=== PATIENT | female | born 1975 | race Caucasian/White ===

== ENCOUNTER 2016-08-30 09:19 | Emergency (ER) | payer OTHER ==
[~2016-08-30] VITALS: Ht 182.9 cm; Wt 113.4 kg
[2016-08-30 10:03] LABS: BILIRUBIN,URINE NEGATIVE (NEG); GLUCOSE,URINE NEGATIVE (NEG); NITRITE,URINE NEGATIVE (NEG); PROTEIN,URINE NEGATIVE (NEG-TRACE); UROBILINOGEN,URINE 0.2 mg/dL (0.2 mg/dL)
[2016-08-30] MEDS ORDERED: fentaNYL PF VIAL 100 MCG/2 ML VIAL IV ONE (10:15)
[2016-08-30] MEDS ORDERED: IV NORMAL SALINE 1000ML BAG 1,000 ML IV ONE (10:15)
[2016-08-30] MEDS ORDERED: IOHEXOL 240 MG/ML 50ML VIAL. PO ONE (10:15)
[2016-08-30] MEDS ORDERED: IOHEXOL 300 MG/ML 75 ML VIAL IV ONE (10:15)
[2016-08-30] MEDS ORDERED: ONDANSETRON PF 4 MG/2 ML VIAL. IV ONE ×2 (10:15→11:30)
[2016-08-30] MEDS ORDERED: CONTRAST GIVEN MC PRN (10:15)
[2016-08-30 10:31] LABS: BACTERIA,URINE MODERATE /HPF (0-FEW); RBC,URINE TNTC /HPF (0-2); SQUAMOUS EPITHELIAL CELL,UR MOD /LPF; WBC,URINE 0 /HPF (0-4)
[2016-08-30 10:49] LABS: CALCIUM 9.1 mg/dL (8.5-10.1); CREATININE 0.8 mg/dL (0.6-1.0); GFR 79.4; POTASSIUM 3.4 mmol/L (3.5-5.1)
[2016-08-30 10:50] LABS: BASO % 1 % (0-3); EOS % 3 % (0-3); HEMATOCRIT 41.4 % (36.0-47.0); HEMOGLOBIN 14.5 g/dL (12.0-15.5); LYMPH # 1.2 x10^3/uL (1.0-4.8); LYMPH % 21 % (24-48); MEAN CORPUSCULAR HEMOGLOBIN 30 pg (25-35); MEAN CORPUSCULAR HGB CONC 35 g/dL (31-37); MEAN CORPUSCULAR VOLUME 86 fL (79-100); MONO % 7 % (0-9); NEUT % 68 % (31-73); PLATELET COUNT 306 x10^3/uL (140-400); WHITE BLOOD COUNT 5.8 x10^3/uL (4.0-11.0)
[2016-08-30 10:59] LABS: ALBUMIN 4.1 g/dL (3.4-5.0); ALBUMIN/GLOBULIN RATIO 1.1 (1.0-1.7); TOTAL BILIRUBIN 0.3 mg/dL (0.2-1.0); TOTAL PROTEIN 7.7 g/dL (6.4-8.2)
--- NOTE | 2016-08-30 11:37 | RAD ---
CT scan of the abdomen and pelvis without contrast 08/30/2016 Clinical history: Right flank pain. Painful urination. Technique: After the oral administration of contrast, contiguous, 2 mm axial sections were obtained through the abdomen and pelvis. One or more of the following individualized dose reduction techniques were utilized for this study: 1. Automated exposure control. 2. Adjustment of the mA and/or kV according to patient size. 3. Use of iterative reconstruction technique. Findings: No previous imaging studies are available for comparison. Images through the lung bases demonstrate minimal dependent subsegmental atelectasis bilaterally. A 4 mm calcified granuloma is seen involving the right middle lobe. A calcified right hilar lymph node is seen. The liver is mildly enlarged measuring 26 cm in length. The liver parenchyma has a decreased attenuation consistent with mild fatty infiltration. The spleen, pancreas, and adrenal glands are within normal limits. No renal or ureteral calculus is seen. There is no evidence of obstruction of either collecting system. Mild atherosclerotic calcification of the abdominal aorta is seen. The abdominal aorta tapers normally. Surgical clips are within the gallbladder fossa consistent with a cholecystectomy. Surgical clips are seen medial to the cecum consistent with an appendectomy. There is no evidence of bowel obstruction. No free fluid or free air is seen within the abdomen. Images through the pelvis demonstrate a urinary bladder distended with urine. The uterus is not visualized consistent with a hysterectomy. No adnexal mass is seen. No distal ureteral calculus is noted. No free fluid is seen. Minimal S shaped curvature of the thoracolumbar spine is noted. Degenerative changes are seen involving the lower thoracic and throughout the lumbar spine and both hips. Impression: No acute abnormality is seen.
[2016-08-30] MEDS ORDERED: TAMS0.4C97 PO (12:13)
[2016-08-30] MEDS ORDERED: HYDR-971 PO (12:13)
[2016-08-30] MEDS ORDERED: ONDA4TAB10 SL (12:13)
--- NOTE | 2016-08-30 12:13 | PHYS DOC ---
Past Medical History Past Medical History: Diabetes-Type II, Migraines Past Surgical History: Appendectomy, Cholecystectomy, Hysterectomy Alcohol Use: None Drug Use: None Adult General Chief Complaint Chief Complaint: PAIN ON URINATION HPI HPI Patient is a 40 year old female with a history of diabetes type 2, migraine headaches, who presents today with mild left flank pain, intermittent episodes of nausea with no vomiting, and intermittent episodes of dysuria for the last 4 days. Patient states she has history of a full hysterectomy. Patient states she has family history of kidney stones. Patient denies any personal history of kidney stones. Patient denies any hematuria but states her urine is dark since this morning. Review of Systems Review of Systems Constitutional: Denies fever or chills [] Eyes: Denies change in visual acuity, redness, or eye pain [] HENT: Denies nasal congestion or sore throat [] Respiratory: Denies cough or shortness of breath [] Cardiovascular: No additional information not addressed in HPI [] GI: Nausea : Left flank pain Musculoskeletal: Denies back pain or joint pain [] Integument: Denies rash or skin lesions [] Neurologic: Denies headache, focal weakness or sensory changes [] Endocrine: Denies polyuria or polydipsia [] Current Medications Current Medications Current Medications Medications (Trade) Dose Ordered Sig/Fabiano Start Time Stop Time Status Last Admin Dose Admin Fentanyl Citrate (Fentanyl 2ml Vial) 50 mcg 1X ONCE 08/30/16 10:15 08/30/16 10:16 DC 08/30/16 10:31 50 MCG Hydromorphone HCl (Dilaudid) 1 mg 1X ONCE 08/30/16 12:15 08/30/16 12:16 DC 08/30/16 12:32 1 MG Info (Do NOT chart on this entry -- for MONITORING) 1 each PRN DAILY PRN 08/30/16 10:15 09/01/16 10:14 Iohexol (Omnipaque 240 Mg/ml) 30 ml 1X ONCE 08/30/16 10:15 08/30/16 10:16 DC Iohexol (Omnipaque 300 Mg/ml) 75 ml 1X ONCE 08/30/16 10:15 08/30/16 10:16 DC Ondansetron HCl (Zofran) 4 mg 1X ONCE 08/30/16 11:30 08/30/16 11:31 DC 08/30/16 11:43 4 MG Sodium Chloride 1,000 ml @ 1,000 mls/hr 1X ONCE 08/30/16 10:15 08/30/16 11:14 DC 08/30/16 10:29 1,000 MLS/HR Tamsulosin HCl (Flomax) 0.4 mg 1X ONCE 08/30/16 12:15 08/30/16 12:16 DC 08/30/16 12:32 0.4 MG Allergies Allergies Allergies Coded Allergies Type Severity Reaction Last Updated Verified prochlorperazine Allergy Severe DYSTONIC REACTION 08/30/16 Yes ketorolac Allergy Intermediate RASH 08/30/16 Yes Physical Exam Physical Exam Constitutional: Well developed, well nourished, no acute distress, non-toxic appearance. [] HENT: Normocephalic, atraumatic, bilateral external ears normal, oropharynx moist, no oral exudates, nose normal. [] Eyes: PERRLA, EOMI, conjunctiva normal, no discharge. [] Neck: Normal range of motion, no tenderness, supple, no stridor. [] Cardiovascular:Heart rate regular rhythm, no murmur [] Lungs & Thorax: Bilateral breath sounds clear to auscultation [] Abdomen: Bowel sounds normal, soft, no tenderness, no masses, no pulsatile masses. [] Skin: Warm, dry, no erythema, no rash. [] Back: No tenderness, mild left CVA tenderness. [] Extremities: No tenderness, no cyanosis, no clubbing, ROM intact, no edema. [] Neurologic: Alert and oriented X 3, normal motor function, normal sensory function, no focal deficits noted. [] Psychologic: Affect normal, judgement normal, mood normal. [] Current Patient Data Vital Signs Vital Signs Date Time Temp Pulse Resp B/P (MAP) Pulse Ox O2 Delivery O2 Flow Rate FiO2 08/30/16 12:32 20 98 Room Air 08/30/16 10:32 104 123/91 (102) 08/30/16 09:40 99.1 99.1 Lab Values Laboratory Tests Test 08/30/16 09:50 08/30/16 10:28 Urine Collection Type Unknown Urine Color Yellow Urine Clarity Clear Urine pH 6.0 Urine Specific [place] 1.010 Urine Protein Negative mg/dL (NEG-TRACE) Urine Glucose (UA) Negative mg/dL (NEG) Urine Ketones (Stick) Negative mg/dL (NEG) Urine Blood Large (NEG) Urine Nitrite Negative (NEG) Urine Bilirubin Negative (NEG) Urine Urobilinogen Dipstick 0.2 mg/dL (0.2 mg/dL) Urine Leukocyte Esterase Negative (NEG) Urine RBC Tntc /HPF (0-2) Urine WBC 0 /HPF (0-4) Urine Squamous Epithelial Cells Mod /LPF Urine Bacteria Moderate /HPF (0-FEW) White Blood Count 5.8 x10^3/uL (4.0-11.0) Red Blood Count 4.80 x10^6/uL (3.50-5.40) Hemoglobin 14.5 g/dL (12.0-15.5) Hematocrit 41.4 % (36.0-47.0) Mean Corpuscular Volume 86 fL (79-100) Mean Corpuscular Hemoglobin 30 pg (25-35) Mean Corpuscular Hemoglobin Concent 35 g/dL (31-37) Red Cell Distribution Width 14.0 % (11.5-14.5) Platelet Count 306 x10^3/uL (140-400) Neutrophils (%) (Auto) 68 % (31-73) Lymphocytes (%) (Auto) 21 % (24-48) L Monocytes (%) (Auto) 7 % (0-9) Eosinophils (%) (Auto) 3 % (0-3) Basophils (%) (Auto) 1 % (0-3) Neutrophils # (Auto) 3.9 x10^3uL (1.8-7.7) Lymphocytes # (Auto) 1.2 x10^3/uL (1.0-4.8) Monocytes # (Auto) 0.4 x10^3/uL (0.0-1.1) Eosinophils # (Auto) 0.2 x10^3/uL (0.0-0.7) Basophils # (Auto) 0.0 x10^3/uL (0.0-0.2) Sodium Level 139 mmol/L (136-145) Potassium Level 3.4 mmol/L (3.5-5.1) L Chloride Level 103 mmol/L (98-107) Carbon Dioxide Level 24 mmol/L (21-32) Anion Gap 12 (6-14) Blood Urea Nitrogen 7 mg/dL (7-20) Creatinine 0.8 mg/dL (0.6-1.0) Estimated GFR (Cockcroft-Gault) 79.4 BUN/Creatinine Ratio 9 (6-20) Glucose Level 136 mg/dL (70-99) H Calcium Level 9.1 mg/dL (8.5-10.1) Total Bilirubin 0.3 mg/dL (0.2-1.0) Aspartate Amino Transferase (AST) 73 U/L (15-37) H Alanine Aminotransferase (ALT) 82 U/L (14-59) H Alkaline Phosphatase 82 U/L (46-116) Total Protein 7.7 g/dL (6.4-8.2) Albumin 4.1 g/dL (3.4-5.0) Albumin/Globulin Ratio 1.1 (1.0-1.7) Lipase 148 U/L (73-393) Laboratory Tests 08/30/16 10:28 Laboratory Tests 08/30/16 10:28 EKG EKG [] Radiology/Procedures Radiology/Procedures []PROCEDURE: CT ABDOMEN PELVIS WO CONTRAST CT scan of the abdomen and pelvis without contrast 08/30/2016 Clinical history: Right flank pain. Painful urination. Technique: After the oral administration of contrast, contiguous, 2 mm axial sections were obtained through the abdomen and pelvis. One or more of the following individualized dose reduction techniques were utilized for this study: 1. Automated exposure control. 2. Adjustment of the mA and/or kV according to patient size. 3. Use of iterative reconstruction technique. Findings: No previous imaging studies are available for comparison. Images through the lung bases demonstrate minimal dependent subsegmental atelectasis bilaterally. A 4 mm calcified granuloma is seen involving the right middle lobe. A calcified right hilar lymph node is seen. The liver is mildly enlarged measuring 26 cm in length. The liver parenchyma has a decreased attenuation consistent with mild fatty infiltration. The spleen, pancreas, and adrenal glands are within normal limits. No renal or ureteral calculus is seen. There is no evidence of obstruction of either collecting system. Mild atherosclerotic calcification of the abdominal aorta is seen. The abdominal aorta tapers normally. Surgical clips are within the gallbladder fossa consistent with a cholecystectomy. Surgical clips are seen medial to the cecum consistent with an appendectomy. There is no evidence of bowel obstruction. No free fluid or free air is seen within the abdomen. Images through the pelvis demonstrate a urinary bladder distended with urine. The uterus is not visualized consistent with a hysterectomy. No adnexal mass is seen. No distal ureteral calculus is noted. No free fluid is seen. Minimal S shaped curvature of the thoracolumbar spine is noted. Degenerative changes are seen involving the lower thoracic and throughout the lumbar spine and both hips. Impression: No acute abnormality is seen. DICTATED and SIGNED BY: RACHEAL ZHANG MD DATE: 08/30/16 1117 Course & Med Decision Making Course & Med Decision Making Pertinent Labs and Imaging studies reviewed. (See chart for details) This is a 40-year-old female patient who presents today with left flank pain dysuria and nausea for [address] of the abdomen and pelvic is negative for any acute findings. CBC CMP lipase with no acute findings. Urine is noted for large amount of blood, no nitrates or leukocytes. Urine was sent to lab for culture. I highly suspect this patient has passed a kidney stone. Her pain is well managed in the ED. She was discharged with Flomax hydrocodone and Zofran. She was instructed to follow-up with her PCP or Urologist. She was instructed to return to the ED symptoms worsen. Dragon Disclaimer Dragon Disclaimer This electronic medical record was generated, in whole or in part, using a voice recognition dictation system. Departure Departure Impression: Primary Impression: Left flank pain Additional Impression: Dysuria Disposition: 01 HOME, SELF-CARE Condition: STABLE Referrals: MIO VILLA (PCP) Follow-up with your own doctor or the provided urologist in 1 week LEAH HOOKER DO follow up in one week Patient Instructions: Flank Pain, [id number] Additional Instructions: You were seen for left flank pain. Your CT of the abdomen and pelvic was negative for any acute findings. Urine shows you have large amount of blood. This could come from a possible kidney stone that has already passed. We sent you home with pain medications to help with your symptoms. Take them as prescribed. Come back to the ED at any point symptoms worsen. Follow-up with your own doctor the provided urologist in the next 7 days. Scripts Tamsulosin Hcl (FLOMAX) 0.4 Mg Cap.er.24h 1 CAP PO DAILY, #6 CAP 11 Refills Prov: MELISSA FOREMAN APRN 08/30/16 Hydrocodone/Apap 5-325 (NORCO 5-325 TABLET) 1 Each Tablet 1-2 TAB PO Q4-6HRS, #20 TAB Prov: MELISSA FOREMAN APRN 08/30/16 Ondansetron (ZOFRAN ODT) 4 Mg Tab.rapdis 1 TAB SL Q8HRS, #15 TAB Prov: MELISSA FOREMAN APRN 08/30/16 Problem Qualifiers MELISSA FOREMAN APRN Aug 30, 2016 12:13
[2016-08-30] MEDS ORDERED: HYDROmorphone 2 MG/ML VIAL IV ONE (12:15)
[2016-08-30] MEDS ORDERED: TAMSULOSIN 0.4 MG CAP.ER.24H. PO ONE (12:15)
[2016-08-30 12:32] VITALS: BP 116/78
== END 2016-08-30 12:44 | disposition home or self-care (01) ==
LOC: ER 09:19
DX: R10.9 Unspecified abdominal pain (principal); R30.0 Dysuria; R11.0 Nausea; E11.9 Type 2 diabetes mellitus without complications; G43.909 Migraine, unspecified, not intractable, without status migrainosus; Z90.49 Acquired absence of other specified parts of digestive tract; Z90.710 Acquired absence of both cervix and uterus; Z88.8 Allergy status to other drugs, medicaments and biological substances; Z88.6 Allergy status to analgesic agent
CPT/HCPCS: 36415; 74176; 80053; 81001; 83690; 85027; 87086; 96361; 96374; 96375; 96376; 99285; J1170; J2405; J3010; J7030

== ENCOUNTER 2016-09-03 11:42 | Emergency (ER) | payer OTHER ==
[~2016-09-03] VITALS: Ht 182.9 cm; Wt 113.4 kg
[~2016-09-03 11:42] MED LIST: HYDR-971 PO; ONDA4TAB10 SL; TAMS0.4C97 PO
--- NOTE | 2016-09-03 12:07 | PHYS DOC ---
Past Medical History Past Medical History: Diabetes-Type II, Migraines Past Surgical History: Appendectomy, Cholecystectomy, Hysterectomy Alcohol Use: None Drug Use: None Adult General Chief Complaint Chief Complaint: FLANK PAIN HPI HPI Patient is a 40 year old female presents to the emergency department with complaints of persistent left flank pain knifelike pain in the urethra urination. Evaluated in the emergency department 5 days ago and diagnosed with a probable renal stone. He reports that prior to coming to the emergency department she had a one-week history of flank pain. In the emergency department she had a urinalysis that was positive for blood, a CT that was negative for evidence for renal stone. At that time it was felt the patient had probably passed the stone and she was discharged with pain medications and nausea medications. The patient states that the pain has been persistent and waxed and waned until yesterday when it became quite intense. Since she is taking the main pain medications as directed as well as the nausea medication she has not vomited. She is here now seeking evaluation for the persistent left flank pain. Review of Systems Review of Systems Constitutional: Denies fever or chills [] Eyes: Denies change in visual acuity, redness, or eye pain [] HENT: Denies nasal congestion or sore throat [] Respiratory: Denies cough or shortness of breath [] Cardiovascular: No additional information not addressed in HPI [] GI: Denies abdominal pain, nausea, vomiting, bloody stools or diarrhea [] : Denies dysuria or hematuria, left flank pain [] Musculoskeletal: Denies back pain or joint pain [] Integument: Denies rash or skin lesions [] Neurologic: Denies headache, focal weakness or sensory changes [] Endocrine: Denies polyuria or polydipsia [] Current Medications Current Medications Current Medications Medications (Trade) Dose Ordered Sig/Fabiano Start Time Stop Time Status Last Admin Dose Admin Diphenhydramine HCl (Benadryl) 25 mg 1X ONCE 09/03/16 14:00 09/03/16 14:01 DC 09/03/16 14:08 25 MG Fentanyl Citrate (Fentanyl 2ml Vial) 50 mcg 1X ONCE 09/03/16 14:00 09/03/16 14:01 DC 09/03/16 14:09 50 MCG Ondansetron HCl (Zofran) 4 mg 1X ONCE 09/03/16 14:00 09/03/16 14:01 DC 09/03/16 14:07 4 MG Sodium Chloride 500 ml @ 500 mls/hr 1X ONCE 09/03/16 14:00 09/03/16 14:59 09/03/16 14:06 500 MLS/HR Allergies Allergies Allergies Coded Allergies Type Severity Reaction Last Updated Verified prochlorperazine Allergy Severe DYSTONIC REACTION 08/30/16 Yes ketorolac Allergy Intermediate RASH 08/30/16 Yes morphine Adverse Reaction Unknown "gives me a migraine" 09/03/16 Yes Physical Exam Physical Exam Constitutional: Well developed, well nourished, no acute distress, non-toxic appearance. [] Neck: Normal range of motion, no tenderness, supple, no stridor. [] Cardiovascular: Tachycardia, no murmur [] Lungs & Thorax: Bilateral breath sounds clear to auscultation [] Abdomen: Bowel sounds normal, soft, no tenderness, no masses, no pulsatile masses. [] Skin: Moist, dry, no erythema, no rash. [] Back: CVA tenderness on the left, no apparent radiation of pain.] Extremities: No tenderness, no cyanosis, no clubbing, ROM intact, no edema. [] Neurologic: Alert and oriented X 3, normal motor function, normal sensory function, no focal deficits noted. [] Psychologic: Affect normal, judgement normal, mood normal. [] Current Patient Data Vital Signs Vital Signs Date Time Temp Pulse Resp B/P (MAP) Pulse Ox O2 Delivery O2 Flow Rate FiO2 09/03/16 14:09 20 97 Room Air 09/03/16 12:10 98.2 137 150/105 (120) 98.2 Lab Values Laboratory Tests Test 09/03/16 11:50 09/03/16 13:06 Urine Collection Type Unknown Urine Color [place] Urine Clarity [place] Urine pH 5.5 Urine Specific [place] <=1.005 Urine Protein Negative mg/dL (NEG-TRACE) Urine Glucose (UA) 100 mg/dL (NEG) Urine Ketones (Stick) Negative mg/dL (NEG) Urine Blood Large (NEG) Urine Nitrite Negative (NEG) Urine Bilirubin Negative (NEG) Urine Urobilinogen Dipstick 0.2 mg/dL (0.2 mg/dL) Urine Leukocyte Esterase Trace (NEG) Urine RBC >40 /HPF (0-2) Urine WBC 1-4 /HPF (0-4) Urine Squamous Epithelial Cells Many /LPF Urine Bacteria Mod /HPF (0-FEW) White Blood Count 7.8 x10^3/uL (4.0-11.0) Red Blood Count 5.32 x10^6/uL (3.50-5.40) Hemoglobin 15.9 g/dL (12.0-15.5) H Hematocrit 45.7 % (36.0-47.0) Mean Corpuscular Volume 86 fL (79-100) Mean Corpuscular Hemoglobin 30 pg (25-35) Mean Corpuscular Hemoglobin Concent 35 g/dL (31-37) Red Cell Distribution Width 14.4 % (11.5-14.5) Platelet Count 340 x10^3/uL (140-400) Neutrophils (%) (Auto) 69 % (31-73) Lymphocytes (%) (Auto) 19 % (24-48) L Monocytes (%) (Auto) 8 % (0-9) Eosinophils (%) (Auto) 4 % (0-3) H Basophils (%) (Auto) 0 % (0-3) Neutrophils # (Auto) 5.4 x10^3uL (1.8-7.7) Lymphocytes # (Auto) 1.5 x10^3/uL (1.0-4.8) Monocytes # (Auto) 0.6 x10^3/uL (0.0-1.1) Eosinophils # (Auto) 0.3 x10^3/uL (0.0-0.7) Basophils # (Auto) 0.0 x10^3/uL (0.0-0.2) Sodium Level 137 mmol/L (136-145) Potassium Level 3.6 mmol/L (3.5-5.1) Chloride Level 103 mmol/L (98-107) Carbon Dioxide Level 24 mmol/L (21-32) Anion Gap 10 (6-14) Blood Urea Nitrogen 8 mg/dL (7-20) Creatinine 0.7 mg/dL (0.6-1.0) Estimated GFR (Cockcroft-Gault) 92.7 BUN/Creatinine Ratio 11 (6-20) Glucose Level 176 mg/dL (70-99) H Calcium Level 9.4 mg/dL (8.5-10.1) Total Bilirubin 0.3 mg/dL (0.2-1.0) Aspartate Amino Transferase (AST) 62 U/L (15-37) H Alanine Aminotransferase (ALT) 78 U/L (14-59) H Alkaline Phosphatase 94 U/L (46-116) Total Protein 8.0 g/dL (6.4-8.2) Albumin 4.1 g/dL (3.4-5.0) Albumin/Globulin Ratio 1.1 (1.0-1.7) Laboratory Tests 09/03/16 13:06 Laboratory Tests 09/03/16 13:06 EKG EKG [] Radiology/Procedures Radiology/Procedures [][facility] [address] [place], [place] [id number] IMAGING REPORT Signed PATIENT: GEORGE ORANTES ACCOUNT: [id number] : 1975 LOCATION: ER AGE: 40 SEX: F EXAM STATUS: REG ER ORD. PHYSICIAN: TABITHA BYERS APRN REASON: flank pain,hematuria, CT two days ago neg for stone PROCEDURE: RENAL COMPLETE BILATERAL Examination: Ultrasound kidneys History: History of flank pain, hematuria Comparison: None available Findings The right kidney measures 12.6 x 4.4 x 4.7 cm. The left kidney measures 11.6 x 5.2 x 4.0 cm. Ureteral jets identified in the urinary bladder. No evidence of hydronephrosis. The urinary bladder is mildly distended. Impression: 1. Unremarkable exam. DICTATED and SIGNED BY: TIFFANY GARCIA MD DATE: 09/03/161424 CC: MIO VILLA; LUZMARIA,STAFF; TABITHA BYERS APRN ~ Course & Med Decision Making Course & Med Decision Making 1430: Since in her room playing on her telephone appears quite comfortable. I discussed her lab results and ultrasound results with her. She then began to complain of increased flank pain and burning with urination. I offered admission , she declined stating she had children to take care of. She did request a urology referral. I advised her to return to the emergency Department for new symptoms or concerns or worsening of current condition. She'll be prescribed Cipro and Everly Pertinent Labs and Imaging studies reviewed. (See chart for details) [] Dragon Disclaimer Dragon Disclaimer This electronic medical record was generated, in whole or in part, using a voice recognition dictation system. Departure Departure Impression: Primary Impression: Hematuria Additional Impression: Flank pain Disposition: HOME, SELF-CARE Condition: STABLE Referrals: MIO VILLA (PCP) Patient Instructions: Flank Pain, Hematuria, Adult Scripts Tramadol Hcl (TRAMADOL HCL) 50 Mg Tablet 1 TAB PO PRN Q6HRS Y for PAIN, #15 TAB Prov: TABITHA BYERS APRN 09/03/16 Ciprofloxacin Hcl (CIPRO) 250 Mg Tablet 1 TAB PO BID, #10 TAB Prov: TABITHA BYERS APRN 09/03/16 Problem Qualifiers TABITHA BYERS APRN Sep 03, 2016 12:07
[2016-09-03 12:08] LABS: BILIRUBIN,URINE NEGATIVE (NEG); GLUCOSE,URINE 100 mg/dL (NEG); NITRITE,URINE NEGATIVE (NEG); PH,URINE 5.5; PROTEIN,URINE NEGATIVE (NEG-TRACE); UROBILINOGEN,URINE 0.2 mg/dL (0.2 mg/dL)
[2016-09-03] MEDS ORDERED: ONDANSETRON PF 4 MG/2 ML VIAL. IV ONE ×2 (12:15→14:00)
[2016-09-03] MEDS ORDERED: fentaNYL PF VIAL 100 MCG/2 ML VIAL IM ONE (12:15)
[2016-09-03 12:24] LABS: BACTERIA,URINE MOD /HPF (0-FEW); RBC,URINE >40 /HPF (0-2); SQUAMOUS EPITHELIAL CELL,UR MANY /LPF
[2016-09-03 13:23] LABS: CALCIUM 9.4 mg/dL (8.5-10.1); CREATININE 0.7 mg/dL (0.6-1.0); GFR 92.7; POTASSIUM 3.6 mmol/L (3.5-5.1)
[2016-09-03 13:28] LABS: BASO % 0 % (0-3); EOS % 4 % (0-3); HEMATOCRIT 45.7 % (36.0-47.0); HEMOGLOBIN 15.9 g/dL (12.0-15.5); LYMPH # 1.5 x10^3/uL (1.0-4.8); LYMPH % 19 % (24-48); MEAN CORPUSCULAR HEMOGLOBIN 30 pg (25-35); MEAN CORPUSCULAR HGB CONC 35 g/dL (31-37); MEAN CORPUSCULAR VOLUME 86 fL (79-100); MONO % 8 % (0-9); NEUT % 69 % (31-73); PLATELET COUNT 340 x10^3/uL (140-400); RED BLOOD COUNT 5.32 x10^6/uL (3.50-5.40); RED CELL DISTRIBUTION WIDTH 14.4 % (11.5-14.5); WHITE BLOOD COUNT 7.8 x10^3/uL (4.0-11.0)
[2016-09-03 13:37] LABS: ALBUMIN 4.1 g/dL (3.4-5.0); ALBUMIN/GLOBULIN RATIO 1.1 (1.0-1.7); TOTAL BILIRUBIN 0.3 mg/dL (0.2-1.0)
[2016-09-03] MEDS ORDERED: IV NORMAL SALINE 1000ML BAG 500 ML IV ONE (14:00)
[2016-09-03] MEDS ORDERED: fentaNYL PF VIAL 100 MCG/2 ML VIAL IV ONE (14:00)
[2016-09-03] MEDS ORDERED: diphenhydrAMINE 50 MG/ML VIAL IVP ONE (14:00)
--- NOTE | 2016-09-03 14:29 | RAD ---
Examination: Ultrasound kidneys History: History of flank pain, hematuria Comparison: None available Findings The right kidney measures 12.6 x 4.4 x 4.7 cm. The left kidney measures 11.6 x 5.2 x 4.0 cm. Ureteral jets identified in the urinary bladder. No evidence of hydronephrosis. The urinary bladder is mildly distended. Impression: 1. Unremarkable exam.
[2016-09-03] MEDS ORDERED: CIPR250T30 PO (14:51)
[2016-09-03] MEDS ORDERED: TRAM50TA PO (14:51)
[2016-09-03 15:12] VITALS: BP 115/80
== END 2016-09-03 15:15 | disposition home or self-care (01) ==
LOC: ER 11:42
DX: R10.9 Unspecified abdominal pain (principal); R31.9 Hematuria, unspecified; E11.9 Type 2 diabetes mellitus without complications; G43.909 Migraine, unspecified, not intractable, without status migrainosus; Z90.49 Acquired absence of other specified parts of digestive tract; Z90.710 Acquired absence of both cervix and uterus; Z88.5 Allergy status to narcotic agent; Z88.8 Allergy status to other drugs, medicaments and biological substances
CPT/HCPCS: 36415; 76770; 80053; 81001; 81025; 85027; 96361; 96372; 96374; 96375; 96376; 99285; J1200; J2405; J3010; J7030

== ENCOUNTER 2017-08-15 14:11 | Emergency (ER) | payer OTHER ==
[2017-08-15 15:01] LABS: ADD MAN DIFF? NO
[2017-08-15 15:05] LABS: BASO % 1 % (0-3); EOS # 0.2 x10^3/uL (0.0-0.7); EOS % 3 % (0-3); HEMOGLOBIN 15.4 g/dL (12.0-15.5); LYMPH # 1.2 x10^3/uL (1.0-4.8); LYMPH % 15 % (24-48); MEAN CORPUSCULAR HEMOGLOBIN 30 pg (25-35); MEAN CORPUSCULAR HGB CONC 35 g/dL (31-37); MEAN CORPUSCULAR VOLUME 85 fL (79-100); MONO # 0.5 x10^3/uL (0.0-1.1); MONO % 6 % (0-9); NEUT # 5.9 x10^3uL (1.8-7.7); NEUT % 75 % (31-73); PLATELET COUNT 341 x10^3/uL (140-400); RED BLOOD COUNT 5.16 x10^6/uL (3.50-5.40); RED CELL DISTRIBUTION WIDTH 14.3 % (11.5-14.5); WHITE BLOOD COUNT 7.8 x10^3/uL (4.0-11.0)
[2017-08-15] MEDS: IV NORMAL SALINE 1000ML BAG 1,000 ML IV (15:15)
[2017-08-15] MEDS: ONDANSETRON PF 4 MG/2 ML VIAL. IV (15:15)
[2017-08-15 15:27] LABS: ANION GAP 13 (6-14); BLOOD UREA NITROGEN 10 mg/dL (7-20); BUN/CREATININE RATIO 11 (6-20); CALCIUM 9.6 mg/dL (8.5-10.1); CARBON DIOXIDE 26 mmol/L (21-32); CHLORIDE 98 mmol/L (98-107); CREATININE 0.9 mg/dL (0.6-1.0); GLUCOSE 250 mg/dL (70-99); POTASSIUM 3.6 mmol/L (3.5-5.1); SODIUM 137 mmol/L (136-145)
[2017-08-15 15:33] LABS: ALBUMIN 4.2 g/dL (3.4-5.0); ALBUMIN/GLOBULIN RATIO 1.1 (1.0-1.7); ALK PHOS 119 U/L (46-116); ALT (SGPT) 79 U/L (14-59); AST (SGOT) 74 U/L (15-37); TOTAL BILIRUBIN 0.4 mg/dL (0.2-1.0); TOTAL PROTEIN 7.9 g/dL (6.4-8.2)
[2017-08-15] MEDS: fentaNYL PF VIAL 100 MCG/2 ML VIAL IV (16:30)
[2017-08-15 16:33] LABS: FECAL OB PT NEGATIVE (NEG); NEG OBC FOB NEG; POS OBC FOB POS
[2017-08-16 19:17] LABS: C DIFF BY PCR Negative (Negative)
[2017-08-19 08:15] LABS: CRYPTOSPORIDIUM EIA Negative (Negative)
== END 2017-08-15 17:29 | disposition home or self-care (01) ==
LOC: ER 14:11
DX: R19.7 Diarrhea, unspecified (principal); R11.0 Nausea; R10.30 Lower abdominal pain, unspecified; E78.00 Pure hypercholesterolemia, unspecified; E11.9 Type 2 diabetes mellitus without complications; G43.909 Migraine, unspecified, not intractable, without status migrainosus; Z90.49 Acquired absence of other specified parts of digestive tract; Z90.710 Acquired absence of both cervix and uterus; Z88.5 Allergy status to narcotic agent; Z88.6 Allergy status to analgesic agent; Z88.8 Allergy status to other drugs, medicaments and biological substances
CPT/HCPCS: 36415; 80053; 82274; 85025; 87045; 87324; 87328; 96361; 96374; 96375; 99284-25; J2405; J3010; J7030

== ENCOUNTER 2018-02-15 14:20 | Emergency (ER) | payer SELFPAY ==
[~2018-02-15] VITALS: Ht 180.3 cm; Wt 113.7 kg
[~2018-02-15 14:20] MED LIST changes: +CIPR250T30 PO; +HYDR-3164 PO; -HYDR-971 PO; +METR500T PO; +TRAM50TA PO
[2018-02-15 15:16] LABS: BILIRUBIN,URINE NEGATIVE (NEG); CLARITY,URINE CLEAR; COLOR,URINE YELLOW; NITRITE,URINE NEGATIVE (NEG); PH,URINE 5.5; PROTEIN,URINE NEGATIVE (NEG-TRACE); UROBILINOGEN,URINE 0.2 mg/dL (0.2 mg/dL)
[2018-02-15 15:20] LABS: U PREG PATIENT NEGATIVE (NEG)
[2018-02-15 15:23] LABS: BACTERIA,URINE 0 /HPF (0-FEW); RBC,URINE 0 /HPF (0-2); SQUAMOUS EPITHELIAL CELL,UR OCC /LPF; WBC,URINE 0 /HPF (0-4)
[2018-02-15] MEDS ORDERED: MORPHINE SULFATE 4 MG/ML VIAL. IV ONE ×2 (15:30→17:45)
[2018-02-15] MEDS ORDERED: IV NORMAL SALINE 1000ML BAG 1,000 ML IV ONE ×2 (15:30→17:45)
[2018-02-15] MEDS ORDERED: ONDANSETRON PF 4 MG/2 ML VIAL. IV ONE ×2 (15:30→17:45)
--- NOTE | 2018-02-15 15:37 | PHYS DOC ---
Past Medical History Past Medical History: Diabetes-Type II, High Cholesterol, Migraines, Other Additional Past Medical Histor: c-diff 2017 Past Surgical History: Appendectomy, Cholecystectomy, Hysterectomy Alcohol Use: None Drug Use: None Social History Narrative: PT DENIES DRUG USE, BUT HAS NOTABLE TRACK LIU ON BOTH ARMS. Adult General Chief Complaint Chief Complaint: ABDOMINAL PAIN HPI HPI Patient is a 42 year old female who presents with abdominal pain, nausea, fever , diarrhea. Patient has been having pain with nausea over the last several weeks. Her symptoms worsen over the last 48 hours. She complains of severe left and upper abdomen pain. She also has had persistent runny diarrhea over the same time. She reports a fever 3 days ago of 103. The patient does have a remote ecchymosis of Clostridium differential facility infection. This was last year and occurred secondary to some antibiotic use. The patient was evaluated about 3 weeks earlier at [facility] for diarrhea. She was subsequently found to have Campylobacter infection and was treated with a azithromycin. She states her diarrhea did not improve. Her past surgical history is positive for hysterectomy, appendectomy, cholecystectomy, all were laparoscopic. No acute vomiting but she does complain of nausea. No abnormal vaginal symptoms. Review of Systems Review of Systems Constitutional: + fever Eyes: Denies HENT: Denies nasal congestion Respiratory: Denies cough or shortness of breath Cardiovascular: No additional information not addressed in HPI GI: as documented above : Denies dysuria Musculoskeletal: Denies back pain Integument: Denies rash Neurologic: + headaches Endocrine: Denies polyuria All other systems were reviewed and found to be within normal limits, except as documented in this note. Current Medications Current Medications Current Medications Medications (Trade) Dose Ordered Sig/Fabiano Start Time Stop Time Status Last Admin Dose Admin Info (CONTRAST GIVEN -- Rx MONITORING) 1 each PRN DAILY PRN 02/15/18 16:00 02/17/18 15:59 Iohexol (Omnipaque 300 Mg/ml) 75 ml 1X ONCE 02/15/18 15:45 02/15/18 15:54 DC 02/15/18 16:22 75 ML Morphine Sulfate (Morphine Sulfate) 10 mg 1X ONCE 02/15/18 17:45 02/15/18 17:46 UNV Ondansetron HCl (Zofran) 4 mg 1X ONCE 02/15/18 17:45 02/15/18 17:46 Sodium Chloride 1,000 ml @ 1,000 mls/hr 1X ONCE 02/15/18 17:45 02/15/18 18:44 UNV Allergies Allergies Allergies Coded Allergies Type Severity Reaction Last Updated Verified prochlorperazine Allergy Severe DYSTONIC REACTION 08/30/16 Yes ketorolac Allergy Intermediate RASH 08/30/16 Yes fentanyl Adverse Reaction Intermediate HEADACHE 02/15/18 No morphine Adverse Reaction Intermediate MIGRAINE 02/15/18 Yes Physical Exam Physical Exam Constitutional: Well developed, well nourished, mild distress 2/2 pain HENT: Normocephalic, atraumatic, bilateral external ears normal, oropharynx dry Eyes: PERRLA, EOMI Neck: Normal range of motion Cardiovascular: mildly tachy heart rate regular rhythm, no murmur Lungs & Thorax: Bilateral breath sounds clear to auscultation Abdomen: TTP diffusely, normal bowel sounds, no guarding or rebound Skin: Warm, dry, no erythema Extremities: No tenderness Neurologic: Alert and oriented X 3 Psychologic: Affect normal Current Patient Data Vital Signs Vital Signs Date Time Temp Pulse Resp B/P (MAP) Pulse Ox O2 Delivery O2 Flow Rate FiO2 02/15/18 16:12 97.9 92 16 148/102 (117) 98 Room Air 97.9 Lab Values Laboratory Tests Test 02/15/18 14:49 02/15/18 15:27 Urine Collection Type Void Urine Color Yellow Urine Clarity Clear Urine pH 5.5 Urine Specific [place] 1.020 Urine Protein Negative mg/dL (NEG-TRACE) Urine Glucose (UA) >=1000 mg/dL (NEG) Urine Ketones (Stick) Negative mg/dL (NEG) Urine Blood Negative (NEG) Urine Nitrite Negative (NEG) Urine Bilirubin Negative (NEG) Urine Urobilinogen Dipstick 0.2 mg/dL (0.2 mg/dL) Urine Leukocyte Esterase Negative (NEG) Urine RBC 0 /HPF (0-2) Urine WBC 0 /HPF (0-4) Urine Squamous Epithelial Cells Occ /LPF Urine Bacteria 0 /HPF (0-FEW) Urine Test Negative (NEG) White Blood Count 5.4 x10^3/uL (4.0-11.0) Red Blood Count 4.69 x10^6/uL (3.50-5.40) Hemoglobin 14.0 g/dL (12.0-15.5) Hematocrit 40.3 % (36.0-47.0) Mean Corpuscular Volume 86 fL (79-100) Mean Corpuscular Hemoglobin 30 pg (25-35) Mean Corpuscular Hemoglobin Concent 35 g/dL (31-37) Red Cell Distribution Width 15.3 % (11.5-14.5) H Platelet Count 289 x10^3/uL (140-400) Neutrophils (%) (Auto) 68 % (31-73) Lymphocytes (%) (Auto) 19 % (24-48) L Monocytes (%) (Auto) 8 % (0-9) Eosinophils (%) (Auto) 5 % (0-3) H Basophils (%) (Auto) 1 % (0-3) Neutrophils # (Auto) 3.6 x10^3uL (1.8-7.7) Lymphocytes # (Auto) 1.0 x10^3/uL (1.0-4.8) Monocytes # (Auto) 0.4 x10^3/uL (0.0-1.1) Eosinophils # (Auto) 0.2 x10^3/uL (0.0-0.7) Basophils # (Auto) 0.0 x10^3/uL (0.0-0.2) Sodium Level 140 mmol/L (136-145) Potassium Level 3.8 mmol/L (3.5-5.1) Chloride Level 101 mmol/L (98-107) Carbon Dioxide Level 25 mmol/L (21-32) Anion Gap 14 (6-14) Blood Urea Nitrogen 5 mg/dL (7-20) L Creatinine 0.7 mg/dL (0.6-1.0) Estimated GFR (Cockcroft-Gault) 91.8 Glucose Level 220 mg/dL (70-99) H Calcium Level 9.3 mg/dL (8.5-10.1) Total Bilirubin 0.2 mg/dL (0.2-1.0) Direct Bilirubin 0.1 mg/dL (0.0-0.2) Aspartate Amino Transferase (AST) 95 U/L (15-37) H Alanine Aminotransferase (ALT) 98 U/L (14-59) H Alkaline Phosphatase 118 U/L (46-116) H Total Protein 7.6 g/dL (6.4-8.2) Albumin 4.0 g/dL (3.4-5.0) Lipase 281 U/L (73-393) Laboratory Tests 02/15/18 15:27 Laboratory Tests 02/15/18 15:27 EKG EKG [] Radiology/Procedures Radiology/Procedures FINDINGS: Evaluation of the lower thorax demonstrate atelectasis. There is a tiny calcified granuloma within the right middle lobe. The heart is normal in size. There is hepatomegaly and hepatic steatosis. No focal hepatic lesion is seen. The gallbladder is surgically absent. The pancreas is unremarkable. The spleen is mildly enlarged, measuring 13.5 cm. The adrenal glands are unremarkable. The kidneys are unremarkable. The appendix is surgically absent. No abnormally thickened or dilated loop of bowel is seen. There is no lymphadenopathy. There is a tiny fat-containing umbilical hernia. The bladder is unremarkable. The uterus is surgically absent. There is no suspicious osseous lesion. IMPRESSION: 1. Hepatomegaly and hepatic steatosis. 2. Mild splenomegaly. Course & Med Decision Making Course & Med Decision Making Pertinent Labs and Imaging studies reviewed. (See chart for details) 15:05: Is evaluated and examined. She does seem to have significant discomfort. She has a stool sample at the bedside which is green and watery. Orders are placed for standard abdominal pain workup and stool studies. Medications for pain and nausea are ordered. 18:45: Patient is reevaluated. She continues to have tachycardia with a rate of 112. She is tearful and continues to have abdominal pain. Her labs are normal. Her CT scan does not reveal acute findings. I did review her [facility]'s record. She is treated chronically with opiates from her primary care doctor for degenerative disc disease in the cervical spine. Morphine was given to her initially did not adequately relieve her pain. She is ordered to have an additional dose. Patient does not desire admission today. She has pain medications at home. She is requesting another bag of fluid and another dose of pain medication the ER while her C. difficile test is pending. 18:00: GEORGE to Dr. Alatorre. F/u on sx relief and dispo. Jere Disclaimer Jere Disclaimer This electronic medical record was generated, in whole or in part, using a voice recognition dictation system. Departure Departure Referrals: MIO VILLA (PCP) FERNANDO THOMPSON DO Feb 15, 2018 15:37
[2018-02-15 15:41] LABS: BASO % 1 % (0-3); EOS # 0.2 x10^3/uL (0.0-0.7); EOS % 5 % (0-3); HEMATOCRIT 40.3 % (36.0-47.0); LYMPH % 19 % (24-48); MEAN CORPUSCULAR HEMOGLOBIN 30 pg (25-35); MEAN CORPUSCULAR HGB CONC 35 g/dL (31-37); MEAN CORPUSCULAR VOLUME 86 fL (79-100); MONO # 0.4 x10^3/uL (0.0-1.1); MONO % 8 % (0-9); NEUT # 3.6 x10^3uL (1.8-7.7); NEUT % 68 % (31-73); PLATELET COUNT 289 x10^3/uL (140-400); RED BLOOD COUNT 4.69 x10^6/uL (3.50-5.40); RED CELL DISTRIBUTION WIDTH 15.3 % (11.5-14.5); WHITE BLOOD COUNT 5.4 x10^3/uL (4.0-11.0)
[2018-02-15] MEDS ORDERED: IOHEXOL 300 MG/ML 100ML VIAL. IV ONE (15:45)
[2018-02-15 15:51] LABS: CALCIUM 9.3 mg/dL (8.5-10.1); CREATININE 0.7 mg/dL (0.6-1.0); GFR 91.8; POTASSIUM 3.8 mmol/L (3.5-5.1)
[2018-02-15 15:57] LABS: DIRECT BILIRUBIN 0.1 mg/dL (0.0-0.2); TOTAL BILIRUBIN 0.2 mg/dL (0.2-1.0); TOTAL PROTEIN 7.6 g/dL (6.4-8.2)
[2018-02-15] MEDS ORDERED: CONTRAST GIVEN. MC PRN (16:00)
--- NOTE | 2018-02-15 16:47 | RAD ---
EXAM: Abdomen and pelvis CT with intravenous contrast. HISTORY: Pain and distention. TECHNIQUE: Computed tomographic images of the abdomen and pelvis were obtained following the administration of 75 cc Omnipaque 300 intravenous contrast. Multiplanar reformatting was performed. *One or more of the following individualized dose reduction techniques were utilized for this examination: 1. Automated exposure control. 2. Adjustment of the mA and/or kV according to patient size. 3. Use of iterative reconstruction technique. COMPARISON: 08/30/2016. FINDINGS: Evaluation of the lower thorax demonstrate atelectasis. There is a tiny calcified granuloma within the right middle lobe. The heart is normal in size. There is hepatomegaly and hepatic steatosis. No focal hepatic lesion is seen. The gallbladder is surgically absent. The pancreas is unremarkable. The spleen is mildly enlarged, measuring 13.5 cm. The adrenal glands are unremarkable. The kidneys are unremarkable. The appendix is surgically absent. No abnormally thickened or dilated loop of bowel is seen. There is no lymphadenopathy. There is a tiny fat-containing umbilical hernia. The bladder is unremarkable. The uterus is surgically absent. There is no suspicious osseous lesion. IMPRESSION: 1. Hepatomegaly and hepatic steatosis. 2. Mild splenomegaly. Electronically signed by: Sonya Vega MD (02/15/2018 4:44 PM) [facility]
[2018-02-15] MEDS ORDERED: VANC125C10 PO (19:59)
[2018-02-15] MEDS ORDERED: HYDR-3164 PO (19:59)
[2018-02-15] MEDS ORDERED: ONDA4TAB7 PO (19:59)
[2018-02-15] MEDS ORDERED: AZIT250T6 PO (19:59)
[2018-02-15 20:06] VITALS: BP 150/99
== END 2018-02-15 20:12 | disposition home or self-care (01) ==
LOC: ER 14:20
DX: K76.0 Fatty (change of) liver, not elsewhere classified (principal); R16.1 Splenomegaly, not elsewhere classified; R00.0 Tachycardia, unspecified; R11.0 Nausea; M50.30 Other cervical disc degeneration, unspecified cervical region; R19.7 Diarrhea, unspecified; E11.9 Type 2 diabetes mellitus without complications; E78.00 Pure hypercholesterolemia, unspecified; G43.909 Migraine, unspecified, not intractable, without status migrainosus; Z90.49 Acquired absence of other specified parts of digestive tract; Z90.710 Acquired absence of both cervix and uterus; Z90.89 Acquired absence of other organs
CPT/HCPCS: 36415; 74177; 80048; 80076; 81001; 81025; 83690; 85025; 87045; 87205; 87493; 96361; 96374; 96375; 96376; 99284; J2270; J2405; J7030; Q9967

== ENCOUNTER 2018-12-14 13:50 | Emergency (ER) | payer OTHER ==
[~2018-12-14] VITALS: Ht 180.3 cm; Wt 99.8 kg
[~2018-12-14 13:50] MED LIST changes: +AZIT250T6 PO; +ONDA4TAB7 PO; +VANC125C10 PO
[2018-12-14 14:30] LABS: BILIRUBIN,URINE NEGATIVE (NEG); CLARITY,URINE CLEAR; COLOR,URINE YELLOW; NITRITE,URINE NEGATIVE (NEG); PH,URINE 5.5; PROTEIN,URINE NEGATIVE (NEG-TRACE); UROBILINOGEN,URINE 0.2 mg/dL (0.2 mg/dL)
[2018-12-14] MEDS ORDERED: IV NORMAL SALINE 1000ML BAG 1,000 ML IV ONE (14:30)
[2018-12-14] MEDS ORDERED: ONDANSETRON PF 4 MG/2 ML VIAL. IV ONE ×2 (14:30→17:45)
[2018-12-14 14:35] LABS: SQUAMOUS EPITHELIAL CELL,UR MOD /LPF
[2018-12-14 14:36] LABS: RBC,URINE TNTC /HPF (0-2)
[2018-12-14 14:37] LABS: BACTERIA,URINE FEW /HPF (0-FEW)
[2018-12-14 14:46] LABS: BASO # 0.1 x10^3/uL (0.0-0.2); BASO % 1 % (0-3); EOS # 0.3 x10^3/uL (0.0-0.7); EOS % 5 % (0-3); HEMATOCRIT 42.5 % (36.0-47.0); HEMOGLOBIN 14.7 g/dL (12.0-15.5); LYMPH # 1.4 x10^3/uL (1.0-4.8); LYMPH % 20 % (24-48); MEAN CORPUSCULAR HEMOGLOBIN 31 pg (25-35); MEAN CORPUSCULAR HGB CONC 35 g/dL (31-37); MEAN CORPUSCULAR VOLUME 89 fL (79-100); MONO # 0.4 x10^3/uL (0.0-1.1); MONO % 6 % (0-9); NEUT # 4.8 x10^3/uL (1.8-7.7); NEUT % 69 % (31-73); PLATELET COUNT 300 x10^3/uL (140-400); RED BLOOD COUNT 4.77 x10^6/uL (3.50-5.40); RED CELL DISTRIBUTION WIDTH 14.1 % (11.5-14.5)
[2018-12-14 15:00] LABS: CALCIUM 9.6 mg/dL (8.5-10.1); GFR 60.5; POTASSIUM 3.4 mmol/L (3.5-5.1)
[2018-12-14 15:05] LABS: TOTAL BILIRUBIN 0.2 mg/dL (0.2-1.0); TOTAL PROTEIN 7.9 g/dL (6.4-8.2)
[2018-12-14] MEDS ORDERED: MORPHINE SULFATE 4 MG/ML VIAL. IV ONE ×2 (15:15→17:45)
[2018-12-14] MEDS ORDERED: NORMAL SALINE IV SCH (15:45)
--- NOTE | 2018-12-14 15:50 | PHYS DOC ---
Past Medical History Past Medical History: Diabetes-Type II, High Cholesterol, Migraines, Other Additional Past Medical Histor: c-diff 2017, kidney stones Past Surgical History: Appendectomy, Cholecystectomy, Hysterectomy, Other Alcohol Use: None Drug Use: None Adult General Chief Complaint Chief Complaint: FLANK PAIN HPI HPI Patient is a 43 year old female who presents to the emergency department with complaints of right flank pain. Review of Systems Review of Systems Constitutional: Denies fever or chills [] Eyes: Denies change in visual acuity, redness, or eye pain [] HENT: Denies nasal congestion or sore throat [] Respiratory: Denies cough or shortness of breath [] Cardiovascular: No additional information not addressed in HPI [] GI: Denies abdominal pain, nausea, vomiting, bloody stools or diarrhea [] : Denies dysuria or hematuria [] Musculoskeletal: Denies back pain or joint pain [] Integument: Denies rash or skin lesions [] Neurologic: Denies headache, focal weakness or sensory changes [] Endocrine: Denies polyuria or polydipsia [] All other systems were reviewed and found to be within normal limits, except as documented in this note. Current Medications Current Medications Current Medications Medications (Trade) Dose Ordered Sig/Fabiano Start Time Stop Time Status Last Admin Dose Admin Morphine Sulfate (Morphine Sulfate) 4 mg 1X ONCE 12/14/18 17:45 12/14/18 17:46 DC 12/14/18 17:52 4 MG Ondansetron HCl (Zofran) 4 mg 1X ONCE 12/14/18 17:45 12/14/18 17:46 DC 12/14/18 17:46 4 MG Potassium Chloride (Klor-Con) 40 meq 1X ONCE 12/14/18 17:15 12/14/18 17:16 DC 12/14/18 17:47 40 MEQ Sodium Chloride 1,000 ml @ 1,130 mls/hr Q54M 12/14/18 16:00 12/14/18 17:38 DC 12/14/18 16:58 1,130 MLS/HR Allergies Allergies Allergies Coded Allergies Type Severity Reaction Last Updated Verified NSAIDS (Non-Steroidal Anti-Inflamma Allergy Severe TONGUE & THROAT "GOT WEIRD" 12/14/18 Yes metoclopramide Allergy Severe CRAWLED THE SAWYER 12/14/18 Yes prochlorperazine Allergy Severe DYSTONIC REACTION 08/30/16 Yes ketorolac Allergy Intermediate RASH 08/30/16 Yes fentanyl Adverse Reaction Intermediate HEADACHE 02/15/18 No morphine Adverse Reaction Intermediate MIGRAINE 02/15/18 Yes Physical Exam Physical Exam Constitutional: Well developed, well nourished, no acute distress, non-toxic appearance. [] HENT: Normocephalic, atraumatic, bilateral external ears normal, oropharynx moist, no oral exudates, nose normal. [] Eyes: PERRLA, EOMI, conjunctiva normal, no discharge. [] Neck: Normal range of motion, no tenderness, supple, no stridor. [] Cardiovascular:Heart rate regular rhythm, no murmur [] Lungs & Thorax: Bilateral breath sounds clear to auscultation [] Abdomen: Bowel sounds normal, soft, no tenderness, no masses, no pulsatile masses. [] Skin: Warm, dry, no erythema, no rash. [] Back: No tenderness, no CVA tenderness. [] Extremities: No tenderness, no cyanosis, no clubbing, ROM intact, no edema. [] Neurologic: Alert and oriented X 3, normal motor function, normal sensory function, no focal deficits noted. [] Psychologic: Affect normal, judgement normal, mood normal. [] Current Patient Data Vital Signs Vital Signs Date Time Temp Pulse Resp B/P (MAP) Pulse Ox O2 Delivery O2 Flow Rate FiO2 12/14/18 19:16 102 16 129/86 (100) 97 Room Air 12/14/18 14:04 99.2 99.2 Lab Values Laboratory Tests Test 12/14/18 14:06 12/14/18 14:33 12/14/18 18:35 Urine Collection Type Unknown Urine Color Yellow Urine Clarity Clear Urine pH 5.5 Urine Specific [place] 1.020 Urine Protein Negative mg/dL (NEG-TRACE) Urine Glucose (UA) 100 mg/dL (NEG) Urine Ketones (Stick) Negative mg/dL (NEG) Urine Blood Large (NEG) Urine Nitrite Negative (NEG) Urine Bilirubin Negative (NEG) Urine Urobilinogen Dipstick 0.2 mg/dL (0.2 mg/dL) Urine Leukocyte Esterase Small (NEG) Urine RBC Tntc /HPF (0-2) Urine WBC 5-10 /HPF (0-4) Urine Squamous Epithelial Cells Mod /LPF Urine Bacteria Few /HPF (0-FEW) Urine Mucus Marked /LPF White Blood Count 7.0 x10^3/uL (4.0-11.0) Red Blood Count 4.77 x10^6/uL (3.50-5.40) Hemoglobin 14.7 g/dL (12.0-15.5) Hematocrit 42.5 % (36.0-47.0) Mean Corpuscular Volume 89 fL (79-100) Mean Corpuscular Hemoglobin 31 pg (25-35) Mean Corpuscular Hemoglobin Concent 35 g/dL (31-37) Red Cell Distribution Width 14.1 % (11.5-14.5) Platelet Count 300 x10^3/uL (140-400) Neutrophils (%) (Auto) 69 % (31-73) Lymphocytes (%) (Auto) 20 % (24-48) L Monocytes (%) (Auto) 6 % (0-9) Eosinophils (%) (Auto) 5 % (0-3) H Basophils (%) (Auto) 1 % (0-3) Neutrophils # (Auto) 4.8 x10^3/uL (1.8-7.7) Lymphocytes # (Auto) 1.4 x10^3/uL (1.0-4.8) Monocytes # (Auto) 0.4 x10^3/uL (0.0-1.1) Eosinophils # (Auto) 0.3 x10^3/uL (0.0-0.7) Basophils # (Auto) 0.1 x10^3/uL (0.0-0.2) Sodium Level 139 mmol/L (136-145) Potassium Level 3.4 mmol/L (3.5-5.1) L Chloride Level 99 mmol/L (98-107) Carbon Dioxide Level 25 mmol/L (21-32) Anion Gap 15 (6-14) H Blood Urea Nitrogen 9 mg/dL (7-20) Creatinine 1.0 mg/dL (0.6-1.0) Estimated GFR (Cockcroft-Gault) 60.5 BUN/Creatinine Ratio 9 (6-20) Glucose Level 289 mg/dL (70-99) H Lactic Acid Level 4.7 mmol/L (0.4-2.0) *H 1.6 mmol/L (0.4-2.0) Calcium Level 9.6 mg/dL (8.5-10.1) Total Bilirubin 0.2 mg/dL (0.2-1.0) Aspartate Amino Transferase (AST) 65 U/L (15-37) H Alanine Aminotransferase (ALT) 84 U/L (14-59) H Alkaline Phosphatase 115 U/L (46-116) Total Protein 7.9 g/dL (6.4-8.2) Albumin 4.0 g/dL (3.4-5.0) Albumin/Globulin Ratio 1.0 (1.0-1.7) Procalcitonin < 0.10 ng/mL (0.00-0.10) Laboratory Tests 12/14/18 14:33 Laboratory Tests 12/14/18 14:33 EKG EKG 1419- Sinus tachycardia, NO STEMI rate 123, read by Dr. Ortez[] Radiology/Procedures Radiology/Procedures PROCEDURE: CT ABDOMEN PELVIS WO CONTRAST EXAM: Abdomen and pelvis CT without intravenous contrast. HISTORY: Right flank pain. TECHNIQUE: Computed tomographic images of the abdomen and pelvis were obtained without contrast. Multiplanar reformatting was performed. *One or more of the following individualized dose reduction techniques were utilized for this examination: 1. Automated exposure control. 2. Adjustment of the mA and/or kV according to patient size. 3. Use of iterative reconstruction technique. COMPARISON: 02/15/2018. FINDINGS: Evaluation of the lower thorax demonstrates calcified right infrahilar granulomas. There is a calcified renal within the right middle lobe. There is no suspicious pulmonary nodule. There is no infiltrate or pleural effusion. There is hepatomegaly and hepatic steatosis. The gallbladder is surgically absent. The pancreas, spleen and adrenal glands are unremarkable. There is a 1 mm nonobstructing stone within the lower pole of the right kidney. There is no evidence of hydronephrosis. There is a 2 mm calcification within the right hemipelvis which is likely a phlebolith rather than distal ureteral stone given the absence of hydroureter in this location. The appendix is surgically absent. There is increased colonic wall fat, a finding which can be seen as a sequela of prior inflammation. There is no convincing acute colitis. The uterus is surgically absent. There is no lymphadenopathy. The aorta is normal in caliber. There is no suspicious osseous lesion. IMPRESSION: 1. 1 mm nonobstructing right renal stone. There is a 2 mm calcification within the right pelvis likely due to a phlebolith, stable compared to the prior exam. There is no evidence of hydronephrosis. 2. Hepatomegaly and hepatic steatosis. 3. Increased colonic wall fat, a finding which can be seen as a sequela of prior inflammation. There is no convincing acute colitis. Course & Med Decision Making Course & Med Decision Making Pertinent Labs and Imaging studies reviewed. (See chart for details) [] Dragon Disclaimer Dragon Disclaimer This electronic medical record was generated, in whole or in part, using a voice recognition dictation system. Departure Departure Impression: Primary Impression: UTI (urinary tract infection) Additional Impression: Fever Disposition: HOME, SELF-CARE Condition: STABLE Referrals: NO PCP (PCP) Patient Instructions: Urinary Tract Infection, [id number] Additional Instructions: Fill prescription(s) and use as directed. Avoid bladder irritants such as caffeine, carbonation, and spicy foods. Increase clear fluids. Your lactic acid was elevated on arrival it returned to normal after your IV fluids. Tylenol as needed for fever. Follow up with your primary care doctor in 1-2 days, return to the ER if symptoms worsen. Scripts Sulfamethoxazole/Trimethoprim (BACTRIM DS TABLET) 1 Each Tablet 1 TAB PO BID, #14 TAB 0 Refills Prov: LUIS EDUARDO MOTLEY [employer] 12/14/18 Problem Qualifiers Primary Impression: UTI (urinary tract infection) Urinary tract infection type: acute pyelonephritis Qualified Codes: N10 - Acute pyelonephritis Additional Impression: Fever Fever type: unspecified Qualified Codes: R50.9 - Fever, unspecified LUIS EDUARDO MOTLEY [employer] Dec 14, 2018 15:50
--- NOTE | 2018-12-14 15:59 | RAD ---
EXAM: Abdomen and pelvis CT without intravenous contrast. HISTORY: Right flank pain. TECHNIQUE: Computed tomographic images of the abdomen and pelvis were obtained without contrast. Multiplanar reformatting was performed. *One or more of the following individualized dose reduction techniques were utilized for this examination: 1. Automated exposure control. 2. Adjustment of the mA and/or kV according to patient size. 3. Use of iterative reconstruction technique. COMPARISON: 02/15/2018. FINDINGS: Evaluation of the lower thorax demonstrates calcified right infrahilar granulomas. There is a calcified renal within the right middle lobe. There is no suspicious pulmonary nodule. There is no infiltrate or pleural effusion. There is hepatomegaly and hepatic steatosis. The gallbladder is surgically absent. The pancreas, spleen and adrenal glands are unremarkable. There is a 1 mm nonobstructing stone within the lower pole of the right kidney. There is no evidence of hydronephrosis. There is a 2 mm calcification within the right hemipelvis which is likely a phlebolith rather than distal ureteral stone given the absence of hydroureter in this location. The appendix is surgically absent. There is increased colonic wall fat, a finding which can be seen as a sequela of prior inflammation. There is no convincing acute colitis. The uterus is surgically absent. There is no lymphadenopathy. The aorta is normal in caliber. There is no suspicious osseous lesion. IMPRESSION: 1. 1 mm nonobstructing right renal stone. There is a 2 mm calcification within the right pelvis likely due to a phlebolith, stable compared to the prior exam. There is no evidence of hydronephrosis. 2. Hepatomegaly and hepatic steatosis. 3. Increased colonic wall fat, a finding which can be seen as a sequela of prior inflammation. There is no convincing acute colitis. Electronically signed by: Sonya Vega MD (12/14/2018 3:56 PM) [facility]
[2018-12-14] MEDS: IV NORMAL SALINE 1000ML BAG 1,000 ML IV SCH ×2 (16:06→16:58)
[2018-12-14] MEDS ORDERED: POTASSIUM CHLORIDE 20 MEQ TABLET.ER. PO ONE (17:15)
[2018-12-14] MEDS ORDERED: SULF1TAB24 PO (19:14)
[2018-12-14 19:16] VITALS: BP 129/86
--- NOTE | 2018-12-15 06:24 | EKG ---
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
== END 2018-12-14 19:25 | disposition home or self-care (01) ==
LOC: ER 13:50
DX: N10 Acute pyelonephritis (principal); E78.00 Pure hypercholesterolemia, unspecified; E11.9 Type 2 diabetes mellitus without complications; G43.909 Migraine, unspecified, not intractable, without status migrainosus; Z87.442 Personal history of urinary calculi; Z90.89 Acquired absence of other organs; Z90.49 Acquired absence of other specified parts of digestive tract; Z90.710 Acquired absence of both cervix and uterus; Z88.4 Allergy status to anesthetic agent; Z88.5 Allergy status to narcotic agent; Z88.6 Allergy status to analgesic agent
CPT/HCPCS: 36415; 74176; 80053; 81001; 83605; 84145; 85025; 87040; 87086; 93005; 96361; 96374; 96375; 96376; 99285; J2270; J2405; J7030

== ENCOUNTER 2019-10-02 21:44 | Emergency (ER) | payer SELFPAY ==
[~2019-10-02] VITALS: Ht 180.3 cm; Wt 88.0 kg
[~2019-10-02 21:44] MED LIST changes: +SULF1TAB24 PO
[2019-10-02 23:43] LABS: BILIRUBIN,URINE NEGATIVE (NEG); CLARITY,URINE CLEAR; COLOR,URINE YELLOW; NITRITE,URINE NEGATIVE (NEG); PROTEIN,URINE NEGATIVE (NEG-TRACE)
[2019-10-02] MEDS ORDERED: ONDANSETRON PF 4 MG/2 ML VIAL. IM ONE (23:45)
[2019-10-02] MEDS ORDERED: IV NORMAL SALINE 1000ML BAG 1,000 ML IV SCH (23:45)
--- NOTE | 2019-10-02 23:45 | PHYS DOC ---
Past Medical History Past Medical History: Diabetes-Type II, High Cholesterol, Migraines, Other Additional Past Medical Histor: c-diff 2017, kidney stones Past Surgical History: Appendectomy, Cholecystectomy, Hysterectomy, Other Smoking Status: Never Smoker Alcohol Use: None Drug Use: None General Adult EDM: Chief Complaint: ABDOMINAL PAIN HPI: HPI: 43-year-old female who presents with low-grade temperature, nausea, vomiting, diarrhea which began today. Patient has been feeling kind of weak for last few days with GI symptoms started today. Patient also complains of diffuse abdominal pain worse in the lower abdomen. Pain is worse with movement. Pain is moderate in nature and described as a pain and cramping. Patient has a history of diverticulitis and C. difficile and was antibiotics 3 weeks ago Review of Systems: Review of Systems: Constitutional: Low-grade fever Eyes: Denies change in visual acuity. [] HENT: Denies nasal congestion or sore throat. [] Respiratory: Denies cough or shortness of breath. [] Cardiovascular: Denies chest pain or edema. [] GI: Complains of abdominal pain, nausea, vomiting, diarrhea. [] : Denies dysuria. [] Musculoskeletal: Denies back pain or joint pain. [] Integument: Denies rash. [] Neurologic: Denies headache, focal weakness or sensory changes. [] Endocrine: Denies polyuria or polydipsia. [] Lymphatic: Denies swollen glands. [] Psychiatric: Denies depression or anxiety. [] Heart Score: Risk Factors: Risk Factors: DM, Current or recent (<one month) smoker, HTN, HLP, family history of CAD, obesity. Risk Scores: Score 0 - 3: 2.5% MACE over next 6 weeks - Discharge Home Score 4 - 6: 20.3% MACE over next 6 weeks - Admit for Clinical Observation Score 7 - 10: 72.7% MACE over next 6 weeks - Early Invasive Strategies Current Medications: Current Medications Medications (Trade) Dose Ordered Sig/Fabiano Start Time Stop Time Status Last Admin Dose Admin Ondansetron HCl (Zofran) 4 mg 1X ONCE 10/02/19 23:45 10/02/19 23:46 Sodium Chloride 1,000 ml @ 1,000 mls/hr Q1H 10/02/19 23:45 10/03/19 00:44 Allergies: Allergies: Allergies Coded Allergies Type Severity Reaction Last Updated Verified NSAIDS (Non-Steroidal Anti-Inflamma Allergy Severe TONGUE & THROAT "GOT WEIRD" 12/14/18 Yes metoclopramide Allergy Severe CRAWLED THE SAWYER 12/14/18 Yes prochlorperazine Allergy Severe DYSTONIC REACTION 08/30/16 Yes ketorolac Allergy Intermediate RASH 08/30/16 Yes Physical Exam: PE: Constitutional: Well developed, well nourished, no acute distress, non-toxic ap pearance. [] HENT: Normocephalic, atraumatic, bilateral external ears normal, oropharynx moist, no oral exudates, nose normal. [] Eyes: PERRLA, EOMI, conjunctiva normal, no discharge. [] Neck: Normal range of motion, no tenderness, supple, no stridor. [] Cardiovascular:Heart rate regular rhythm, no murmur [] Lungs & Thorax: Bilateral breath sounds clear to auscultation [] Abdomen: Abdomen with mild distention and diffuse tenderness to palpation, no guarding or rebound no pulsatile masses Skin: Warm, dry, no erythema, no rash. [] Back: No tenderness, no CVA tenderness. [] Extremities: No tenderness, no cyanosis, no clubbing, ROM intact, no edema. [] Neurologic: Alert and oriented X 3, normal motor function, normal sensory function, no focal deficits noted. [] Psychologic: Affect normal, judgement normal, mood normal. [] Current Patient Data: Vital Signs: Vital Signs Date Time Temp Pulse Resp B/P (MAP) Pulse Ox O2 Delivery O2 Flow Rate FiO2 10/02/19 22:20 98.6 114 18 119/82 (94) 97 Room Air 98.6 EKG: EKG: [] Radiology/Procedures: Radiology/Procedures: [][facility] [address] [place], [place] [id number] IMAGING REPORT Signed PATIENT: GEORGE ORANTES ACCOUNT: [id number] : 1975 LOCATION: ER AGE: 43 SEX: F EXAM STATUS: REG ER ORD. PHYSICIAN: CORINNA MARIE MD REASON: DIARRHEA, HX OF C DIFF AND DIVERTICULITIS PROCEDURE: CT ABD PELV W/ IV CONTRST ONLY CT scan of the abdomen and pelvis with contrast 10/03/2019 CLINICAL HISTORY: Diarrhea. TECHNIQUE: After the intravenous administration 75 cc of Omnipaque 300 only, contiguous, 5 mm axial sections were obtained through the abdomen and pelvis. One or more of the following individualized dose reduction techniques were utilized for this study: 1. Automated exposure control. 2. Adjustment of the mA and/or kV according to patient size. 3. Use of iterative reconstruction technique. FINDINGS: Comparison study is dated 12/14/2018. Images through the lung bases demonstrate minimal dependent subsegmental atelectasis bilaterally. The liver parenchyma has a decreased attenuation consistent with fatty infiltration. The liver is mildly enlarged measuring 24 cm in length. The spleen, pancreas, adrenal glands and left kidney are within normal limits. A 2 mm nonobstructing calculus is seen involving the lower pole of the right kidney. Mild atherosclerotic calcification of the abdominal aorta is seen. The abdominal aorta tapers normally. Surgical clips are seen within the gallbladder fossa consistent with a cholecystectomy. A moderate amount of stool is seen throughout the colon. The cecum extends into the pelvis. The appendix is not visualized. No inflammatory changes are seen surrounding the cecum. There is no evidence of bowel obstruction. No free fluid or free air is within the abdomen. Images through the pelvis demonstrated the urinary bladder is contracted. Calcifications are seen within the pelvis consistent with phleboliths. No adnexal mass is seen. No free fluid is noted. Very mild S-shaped curvature of the thoracolumbar spine is seen. Degenerative changes are seen involving the lower thoracic and throughout the lumbar spine. IMPRESSION: No acute abnormality is seen. Electronically signed by: Jorge Kay MD (10/03/2019 2:29 AM) [id number] DICTATED and SIGNED BY: JORGE KAY MD DATE: 10/03/19 0229 Course & Med Decision Making: Course & Med Decision Making Pertinent Labs and Imaging studies reviewed. (See chart for details) []2:45. pt resting. no active vomiting. clinically stable 43-year-old female presents with low-grade fever, nausea, vomiting, diarrhea. Patient was on antibiotics for weeks ago and has a history of C. difficile. Possible patient has a recurrence. Patient also has been swabbed for coronavirus and given coronavirus precautions. Patient's abdominal exam is nonsurgical. Work-up is otherwise reassuring. Patient will be started on Flagyl as well as symptomatic treatment. Patient feels better after treatment and reassessment in the ER. Jere Disclaimer: Jere Disclaimer: This electronic medical record was generated, in whole or in part, using a voice recognition dictation system. Departure Departure Disposition: 01 HOME, SELF-CARE Condition: STABLE Referrals: your gi doctor Patient Instructions: Abdominal Pain, Clostridium Difficile Infection Additional Instructions: EMERGENCY DEPARTMENT GENERAL DISCHARGE INSTRUCTIONS THANK YOU for coming to [facility] Emergency Department (ED) today and trusting us with your care. We trust that you had a positive experience in our Emergency Department. If you wish to speak to the department Management you can contact the roving department end finder at . YOUR FOLLOW UP INSTRUCTIONS ARE FOLLOWS: Do you have a private doctor? If you do not have a private doctor, please ask for a resource list of physicians or clinics that may be able to assist you with follow up care. The Emergency Physician has interpreted your x-rays. The X-ray specialist will also review them. If there is a change in the findings you will be notified in 48 hours when at all possible. A lab test or lab culture may have been done, your results will be reviewed and you will be notified if you need a change in treatment. ADDITIONAL INSTRUCTIONS AND INFORMATION Your care today has been supervised by a physician who is specially trained in emergency care. Many problems require more than one evaluation for a complete diagnosis and treatment. We recommend that you schedule your follow up appointment as recommended to ensure complete treatment of your illness or injury. If you are unable to obtain follow up care and continue to have a problem, or if your condition worsens we recommend that you return to the ED. We are not able to safely determine your condition over the phone nor are we able to give sound medical advice over the phone. For these safety reasons, if you call for medical advice we will ask you to come to the ED for further evaluation If you have any questions regarding these discharge instructions please call the ED at . SAFETY INFORMATION In the interest of safety, wellness, and injury prevention; we encourage you to wear your seatbelt, if you smoke; quit smoking, and we encourage your family to use protective helmet for bicycling and other sporting events that present an increased risk for head injury. IF YOUR SYMPTOMS WORSEN OR NEW SYMPTOMS DEVELOP, OR YOU HAVE CONCERNS ABOUT YOUR CONDITION; OR IF YOUR CONDITION WORSENS WHILE YOU ARE WAITING FOR YOUR FOLLOW UP APPOINTMENT; EITHER CONTACT YOUR PRIMARY CARE DOCTOR, THE PHYSICIAN WHOSE NAME AND NUMBER YOU WERE GIVEN, OR RETURN TO THE ED IMMEDIATELY. Scripts Ondansetron Hcl (ZOFRAN) 4 Mg Tablet 4 MG PO BID PRN for NAUSEA/VOMITING for 7 Days, #14 TAB Prov: CORINNA MARIE MD 10/03/19 Metronidazole (FLAGYL) 500 Mg Tablet 1 TAB PO TID, #30 TAB Prov: CORINNA MARIE MD 10/03/19 Dicyclomine Hcl (DICYCLOMINE HCL) 20 Mg Tablet 1 TAB PO TID, #30 TAB 1 Refill Prov: CORINNA MARIE MD 10/03/19 Justicifation of Admission Dx: Justifications for Admission: Justification of Admission Dx: N/A CORINNA MARIE MD Oct 02, 2019 23:45
[2019-10-02 23:52] LABS: BACTERIA,URINE FEW /HPF (0-FEW); SQUAMOUS EPITHELIAL CELL,UR OCC /LPF
[2019-10-03] MEDS ORDERED: MORPHINE SULFATE 4 MG/ML VIAL. IV ONE ×2 (00:30→03:30)
[2019-10-03] MEDS ORDERED: ONDANSETRON PF 4 MG/2 ML VIAL. IVP ONE ×2 (00:45→02:30)
[2019-10-03 00:50] LABS: BASO % 0 % (0-3); EOS # 0.1 x10^3/uL (0.0-0.7); EOS % 1 % (0-3); HEMATOCRIT 38.1 % (36.0-47.0); HEMOGLOBIN 13.3 g/dL (12.0-15.5); LYMPH # 1.8 x10^3/uL (1.0-4.8); LYMPH % 29 % (24-48); MEAN CORPUSCULAR HEMOGLOBIN 31 pg (25-35); MEAN CORPUSCULAR HGB CONC 35 g/dL (31-37); MEAN CORPUSCULAR VOLUME 89 fL (79-100); MONO # 1.1 x10^3/uL (0.0-1.1); MONO % 18 % (0-9); NEUT # 3.2 x10^3/uL (1.8-7.7); NEUT % 51 % (31-73); PLATELET COUNT 204 x10^3/uL (140-400); RED BLOOD COUNT 4.26 x10^6/uL (3.50-5.40); RED CELL DISTRIBUTION WIDTH 13.6 % (11.5-14.5); WHITE BLOOD COUNT 6.3 x10^3/uL (4.0-11.0)
[2019-10-03 01:11] LABS: CALCIUM 8.9 mg/dL (8.5-10.1); CREATININE 0.7 mg/dL (0.6-1.0); GFR 91.3; POTASSIUM 3.8 mmol/L (3.5-5.1)
[2019-10-03 01:14] LABS: ALBUMIN/GLOBULIN RATIO 1.2 (1.0-1.7); TOTAL BILIRUBIN 0.3 mg/dL (0.2-1.0); TOTAL PROTEIN 7.4 g/dL (6.4-8.2)
[2019-10-03] MEDS ORDERED: IOHEXOL 300 MG/ML 100ML VIAL. ONE (02:01)
[2019-10-03] MEDS ORDERED: CONTRAST GIVEN. MC PRN (02:15)
[2019-10-03] MEDS ORDERED: IOHEXOL 300 MG/ML 100ML VIAL. IV ONE (02:30)
--- NOTE | 2019-10-03 02:32 | RAD ---
CT scan of the abdomen and pelvis with contrast 10/03/2019 CLINICAL HISTORY: Diarrhea. TECHNIQUE: After the intravenous administration 75 cc of Omnipaque 300 only, contiguous, 5 mm axial sections were obtained through the abdomen and pelvis. One or more of the following individualized dose reduction techniques were utilized for this study: 1. Automated exposure control. 2. Adjustment of the mA and/or kV according to patient size. 3. Use of iterative reconstruction technique. FINDINGS: Comparison study is dated 12/14/2018. Images through the lung bases demonstrate minimal dependent subsegmental atelectasis bilaterally. The liver parenchyma has a decreased attenuation consistent with fatty infiltration. The liver is mildly enlarged measuring 24 cm in length. The spleen, pancreas, adrenal glands and left kidney are within normal limits. A 2 mm nonobstructing calculus is seen involving the lower pole of the right kidney. Mild atherosclerotic calcification of the abdominal aorta is seen. The abdominal aorta tapers normally. Surgical clips are seen within the gallbladder fossa consistent with a cholecystectomy. A moderate amount of stool is seen throughout the colon. The cecum extends into the pelvis. The appendix is not visualized. No inflammatory changes are seen surrounding the cecum. There is no evidence of bowel obstruction. No free fluid or free air is within the abdomen. Images through the pelvis demonstrated the urinary bladder is contracted. Calcifications are seen within the pelvis consistent with phleboliths. No adnexal mass is seen. No free fluid is noted. Very mild S-shaped curvature of the thoracolumbar spine is seen. Degenerative changes are seen involving the lower thoracic and throughout the lumbar spine. IMPRESSION: No acute abnormality is seen. Electronically signed by: Jorge Kay MD (10/03/2019 2:29 AM) [id number]
[2019-10-03] MEDS ORDERED: METR500T PO (02:50)
[2019-10-03] MEDS ORDERED: DICY20TA3 PO (02:50)
[2019-10-03] MEDS ORDERED: ONDA4TAB7 PO (02:50)
[2019-10-03 03:08] VITALS: BP 140/75
== END 2019-10-03 03:15 | disposition home or self-care (01) ==
LOC: ER 21:44
DX: R10.84 Generalized abdominal pain (principal); R19.7 Diarrhea, unspecified; Z20.828 Contact with and (suspected) exposure to other viral communicable diseases; R11.2 Nausea with vomiting, unspecified; G43.909 Migraine, unspecified, not intractable, without status migrainosus; E78.00 Pure hypercholesterolemia, unspecified; E11.9 Type 2 diabetes mellitus without complications; Z90.89 Acquired absence of other organs; Z90.49 Acquired absence of other specified parts of digestive tract; Z90.710 Acquired absence of both cervix and uterus; Z87.442 Personal history of urinary calculi; Z88.6 Allergy status to analgesic agent; Z88.8 Allergy status to other drugs, medicaments and biological substances
CPT/HCPCS: 36415; 74177; 80053; 81001; 83690; 85025; 87086; 87493; 96361; 96374; 96375; 96376; 99285; J2270; J2405; J7030; Q9967; U0003

== ENCOUNTER 2021-05-12 17:25 | Emergency (ER) | payer OTHER ==
[~2021-05-12] VITALS: Ht 180.3 cm; Wt 100.9 kg
[~2021-05-12 17:25] MED LIST changes: +DICY20TA PO
[2021-05-12 18:59] LABS: BASO % 0 % (0-3); EOS % 1 % (0-3); HEMATOCRIT 41.4 % (36.0-47.0); HEMOGLOBIN 13.5 g/dL (12.0-15.5); LYMPH # 1.1 x10^3/uL (1.0-4.8); LYMPH % 24 % (24-48); MEAN CORPUSCULAR HEMOGLOBIN 29 pg (25-35); MEAN CORPUSCULAR HGB CONC 33 g/dL (31-37); MEAN CORPUSCULAR VOLUME 88 fL (79-100); MONO # 1.3 x10^3/uL (0.0-1.1); MONO % 27 % (0-9); NEUT # 2.2 x10^3/uL (1.8-7.7); NEUT % 48 % (31-73); PLATELET COUNT 142 x10^3/uL (140-400); RED BLOOD COUNT 4.72 x10^6/uL (3.50-5.40); RED CELL DISTRIBUTION WIDTH 15.9 % (11.5-14.5); WHITE BLOOD COUNT 4.6 x10^3/uL (4.0-11.0)
[2021-05-12] MEDS ORDERED: fentaNYL PF VIAL 100 MCG/2 ML VIAL IVP ONE (19:00)
[2021-05-12] MEDS ORDERED: ONDANSETRON PF 4 MG/2 ML VIAL. IVP ONE ×2 (19:00→21:30)
[2021-05-12] MEDS ORDERED: IV NORMAL SALINE 1000ML BAG 1,000 ML IV ONE (19:00)
[2021-05-12 19:07] LABS: CALCIUM 9.1 mg/dL (8.5-10.1); CREATININE 0.7 mg/dL (0.6-1.0); GFR 90.5; POTASSIUM 3.9 mmol/L (3.5-5.1)
[2021-05-12 19:09] LABS: BILIRUBIN,URINE NEGATIVE (NEG); CLARITY,URINE HAZY; COLOR,URINE YELLOW
[2021-05-12 19:10] LABS: NITRITE,URINE NEGATIVE (NEG); PH,URINE 5.5 (<5.0-8.0); PROTEIN,URINE NEGATIVE (NEG-TRACE); UROBILINOGEN,URINE 0.2 mg/dL (0.2 mg/dL); WBC,URINE OCC /HPF (0-4)
[2021-05-12 19:11] LABS: BACTERIA,URINE FEW /HPF (0-FEW); RBC,URINE >40 /HPF (0-2)
[2021-05-12 19:15] LABS: ALBUMIN 4.3 g/dL (3.4-5.0); ALBUMIN/GLOBULIN RATIO 1.3 (1.0-1.7); TOTAL BILIRUBIN 0.2 mg/dL (0.2-1.0); TOTAL PROTEIN 7.7 g/dL (6.4-8.2)
[2021-05-12 19:40] LABS: % LYMPHS 31 % (24-48); % MONOS 25 % (0-10); % SEGS 44 % (35-66); PLT ESTIMATE ADEQUATE (ADEQUATE)
[2021-05-12] MEDS ORDERED: IOHEXOL 300 MG/ML 100ML VIAL. IV ONE (20:00)
--- NOTE | 2021-05-12 20:53 | RAD ---
Exam: CT of abdomen and pelvis with contrast INDICATION: Left lower quadrant abdominal pain TECHNIQUE: Sequential axial images through the abdomen and pelvis obtained following the administrati on of 75 mL of Isovue-370 IV contrast. Sagittal and coronal reformatted images were reconstructed fro m the axial data and reviewed. Exposure: One or more of the following in the visualized dose reduction techniques were utilized for this examination: 1. Automated exposure control 2. Adjustment of the MA and/or KV according to patient size 3. Use of iterative of reconstructive technique Comparisons: 10/02/2019 FINDINGS: Heart size is normal. No pericardial effusion. Visualized lung bases are clear. No pleural effusion. Diffuse hepatic steatosis. Spleen, pancreas, and adrenals are unremarkable. Gallbladder surgically ab sent. Nonobstructing right renal calculi. No ureteral calculi are seen. Bladder is decompressed not well evaluated. Uterus is absent. No abnormal adnexal mass. Moderate amount of stool noted in the colon. Appendix is nonidentified. No free intra-abdominal air o r fluid. No obstruction. Abdominal aorta has normal course and caliber. Abdominal vasculature is patent. No enlarged intra-abdominal lymph nodes are identified. No suspicious osseous lesions or acute fractures. IMPRESSION: 1. No acute process identified within the abdomen or pelvis. 2. Diffuse hepatic steatosis. Electronically signed by: Angelica Gill MD (05/12/2021 8:51 PM) [facility]
--- NOTE | 2021-05-12 21:05 | PHYS DOC ---
Past Medical History Past Medical History: Diabetes-Type II, High Cholesterol, Migraines, Other Additional Past Medical Histor: c-diff 2017, kidney stones, COLITIS Past Surgical History: Appendectomy, Cholecystectomy, Hysterectomy, Other Smoking Status: Never Smoker Alcohol Use: None Drug Use: None General Adult EDM: Chief Complaint: FLANK PAIN HPI: HPI: Is a 45-year-old female that presents today with left lower quadrant abdominal pain over the last 2 days. Patient states that she has a history of colitis in the past and that she has been having clear liquids for the last 12 to 24 hours she said the pain today while shopping got to be too much and she came here to [facility] emergency department. Patient states that she has had an appendectomy, gallbladder removal and appendectomy in the past, she also states that she has had a hysterectomy as well. Patient does have a gastrointestinal specialist at [facility] but has not seen them in quite some time, she also has a primary care physician that is at [facility] as well. Patient states a bowel movement today, she is also has some nausea and vomiting. Review of Systems: Review of Systems: Constitutional: Denies fever or chills. [] Eyes: Denies change in visual acuity. [] HENT: Denies nasal congestion or sore throat. [] Respiratory: Denies cough or shortness of breath. [] Cardiovascular: Denies chest pain or edema. [] GI: Abdominal pain, nausea, vomiting, denies , bloody stools or diarrhea. [] : Denies dysuria. [] Musculoskeletal: Denies back pain or joint pain. [] Integument: Denies rash. [] Neurologic: Denies headache, focal weakness or sensory changes. [] Endocrine: Denies polyuria or polydipsia. [] Lymphatic: Denies swollen glands. [] Psychiatric: Denies depression or anxiety. [] Heart Score: C/O Chest Pain: N/A Risk Factors: Risk Factors: DM, Current or recent (<one month) smoker, HTN, HLP, family history of CAD, obesity. Risk Scores: Score 0 - 3: 2.5% MACE over next 6 weeks - Discharge Home Score 4 - 6: 20.3% MACE over next 6 weeks - Admit for Clinical Observation Score 7 - 10: 72.7% MACE over next 6 weeks - Early Invasive Strategies Current Medications: Current Medications Medications (Trade) Dose Ordered Sig/[facility] Start Time Stop Time Status Last Admin Dose Admin Fentanyl Citrate (Fentanyl 2ml Vial) 50 mcg 1X ONCE 05/12/21 19:00 05/12/21 19:01 DC 05/12/21 19:19 50 MCG Iohexol (Omnipaque 300 Mg/ml) 75 ml 1X ONCE 05/12/21 20:00 05/12/21 20:01 DC 05/12/21 20:19 75 ML Ondansetron HCl (Zofran) 4 mg 1X ONCE 05/12/21 19:00 05/12/21 19:01 DC 05/12/21 19:19 4 MG Sodium Chloride 1,000 ml @ 999 mls/hr 1X ONCE 05/12/21 19:00 05/12/21 20:00 DC 05/12/21 19:06 999 MLS/HR Allergies: Allergies: Allergies Coded Allergies Type Severity Reaction Last Updated Verified NSAIDS (Non-Steroidal Anti-Inflamma Allergy Severe TONGUE & THROAT "GOT WEIRD" 12/14/18 Yes metoclopramide Allergy Severe CRAWLED THE SAWYER 12/14/18 Yes prochlorperazine Allergy Severe DYSTONIC REACTION 08/30/16 Yes ketorolac Allergy Intermediate RASH 08/30/16 Yes Physical Exam: PE: Constitutional: Well developed, well nourished, MODERATE distress, non-toxic appearance. [] HENT: Normocephalic, atraumatic, bilateral external ears normal, oropharynx moist, no oral exudates, nose normal. [] Eyes: PERRLA, EOMI, conjunctiva normal, no discharge. [] Neck: Normal range of motion, no tenderness, supple, no stridor. [] Cardiovascular:Heart rate regular rhythm, no murmur [] Lungs & Thorax: Bilateral breath sounds clear to auscultation [] Abdomen: Inspection and palpation of the abdomen abdomen soft with tenderness in the lower abdomen area, no masses bowel sounds are normal Skin: Warm, dry, no erythema, no rash. [] Back: No tenderness, no CVA tenderness. [] Extremities: No tenderness, no cyanosis, no clubbing, ROM intact, no edema. [] Neurologic: Alert and oriented X 3, normal motor function, normal sensory function, no focal deficits noted. [] Psychologic: Affect normal, judgement normal, mood normal. [] Current Patient Data: Labs: Laboratory Tests Test 05/12/21 18:05 05/12/21 18:08 White Blood Count 4.6 x10^3/uL (4.0-11.0) Red Blood Count 4.72 x10^6/uL (3.50-5.40) Hemoglobin 13.5 g/dL (12.0-15.5) Hematocrit 41.4 % (36.0-47.0) Mean Corpuscular Volume 88 fL (79-100) Mean Corpuscular Hemoglobin 29 pg (25-35) Mean Corpuscular Hemoglobin Concent 33 g/dL (31-37) Red Cell Distribution Width 15.9 % (11.5-14.5) H Platelet Count 142 x10^3/uL (140-400) Neutrophils (%) (Auto) 48 % (31-73) Lymphocytes (%) (Auto) 24 % (24-48) Monocytes (%) (Auto) 27 % (0-9) H Eosinophils (%) (Auto) 1 % (0-3) Basophils (%) (Auto) 0 % (0-3) Neutrophils # (Auto) 2.2 x10^3/uL (1.8-7.7) Lymphocytes # (Auto) 1.1 x10^3/uL (1.0-4.8) Monocytes # (Auto) 1.3 x10^3/uL (0.0-1.1) H Eosinophils # (Auto) 0.0 x10^3/uL (0.0-0.7) Basophils # (Auto) 0.0 x10^3/uL (0.0-0.2) Segmented Neutrophils % 44 % (35-66) Lymphocytes % 31 % (24-48) Monocytes % 25 % (0-10) H Platelet Estimate Adequate (ADEQUATE) Sodium Level 138 mmol/L (136-145) Potassium Level 3.9 mmol/L (3.5-5.1) Chloride Level 98 mmol/L (98-107) Carbon Dioxide Level 26 mmol/L (21-32) Anion Gap 14 (6-14) Blood Urea Nitrogen 8 mg/dL (7-20) Creatinine 0.7 mg/dL (0.6-1.0) Estimated GFR (Cockcroft-Gault) 90.5 BUN/Creatinine Ratio 11 (6-20) Glucose Level 354 mg/dL (70-99) H Calcium Level 9.1 mg/dL (8.5-10.1) Total Bilirubin 0.2 mg/dL (0.2-1.0) Aspartate Amino Transferase (AST) 41 U/L (15-37) H Alanine Aminotransferase (ALT) 65 U/L (14-59) H Alkaline Phosphatase 101 U/L (46-116) Total Protein 7.7 g/dL (6.4-8.2) Albumin 4.3 g/dL (3.4-5.0) Albumin/Globulin Ratio 1.3 (1.0-1.7) Lipase 108 U/L (73-393) Urine Collection Type Unknown Urine Color Yellow Urine Clarity Hazy Urine pH 5.5 (<5.0-8.0) Urine Specific [place] 1.025 (1.000-1.030) Urine Protein Negative mg/dL (NEG-TRACE) Urine Glucose (UA) >=1000 mg/dL (NEG) Urine Ketones (Stick) Negative mg/dL (NEG) Urine Blood Large (NEG) Urine Nitrite Negative (NEG) Urine Bilirubin Negative (NEG) Urine Urobilinogen Dipstick 0.2 mg/dL (0.2 mg/dL) Urine Leukocyte Esterase Negative (NEG) Urine RBC >40 /HPF (0-2) Urine WBC Occ /HPF (0-4) Urine Squamous Epithelial Cells Mod /LPF Urine Bacteria Few /HPF (0-FEW) Laboratory Tests 05/12/21 18:05 Laboratory Tests 05/12/21 18:05 Vital Signs: Vital Signs Date Time Temp Pulse Resp B/P (MAP) Pulse Ox O2 Delivery O2 Flow Rate FiO2 05/12/21 22:02 16 Room Air 05/12/21 20:15 16 Room Air 05/12/21 19:30 110 20 113/77 (89) 96 05/12/21 19:19 20 97 Room Air 05/12/21 19:00 118 27 129/85 (100) 97 05/12/21 18:30 118 16 133/94 (107) 97 05/12/21 17:51 98.7 129 20 133/98 (110) 95 Room Air 98.7 Vital Signs Date Time Temp Pulse Resp B/P (MAP) Pulse Ox O2 Delivery O2 Flow Rate FiO2 05/12/21 20:15 16 Room Air 05/12/21 19:30 110 113/77 (89) 96 05/12/21 17:51 98.7 98.7 EKG: EKG: [] Radiology/Procedures: Radiology/Procedures: PROCEDURE: CT ABD PELV W/ IV CONTRST ONLY Exam: CT of abdomen and pelvis with contrast INDICATION: Left lower quadrant abdominal pain TECHNIQUE: Sequential axial images through the abdomen and pelvis obtained following the administration of 75 mL of Isovue-370 IV contrast. Sagittal and coronal reformatted images were reconstructed from the axial data and reviewed. Exposure: One or more of the following in the visualized dose reduction techniqu es were utilized for this examination: 1. Automated exposure control 2. Adjustment of the MA and/or KV according to patient size 3. Use of iterative of reconstructive technique Comparisons: 10/02/2019 FINDINGS: Heart size is normal. No pericardial effusion. Visualized lung bases are clear. No pleural effusion. Diffuse hepatic steatosis. Spleen, pancreas, and adrenals are unremarkable. Gallbladder surgically absent. Nonobstructing right renal calculi. No ureteral calculi are seen. Bladder is decompressed not well evaluated. Uterus is absent. No abnormal adnexal mass. Moderate amount of stool noted in the colon. Appendix is nonidentified. No free intra-abdominal air or fluid. No obstruction. Abdominal aorta has normal course and caliber. Abdominal vasculature is patent. No enlarged intra-abdominal lymph nodes are identified. No suspicious osseous lesions or acute fractures. IMPRESSION: 1. No acute process identified within the abdomen or pelvis. 2. Diffuse hepatic steatosis. Electronically signed by: Angelica Gill MD (05/12/2021 8:51 PM) [facility] [] Course & Med Decision Making: Course & Med Decision Making Pertinent Labs and Imaging studies reviewed. (See chart for details) 8:55 PM reviewed radiological and laboratory results with patient did inform her that she had a large amount of blood in her urine but did not show an infect ious process, also talk to her that her radiological results showed no acute process. I am concerned that the patient's heart rate continues to be 100-1 20, patient did disclose that she is on chronic opioid therapy due to some chronic back pain issues she received 120 tablets of hydrocodone approximately 15 days ago and she states she still has medication left, but she states this is different pain in her pain medication was not helping. I did discuss that her heart rate is high because we are not treating her pain appropriately because we did not know she was on chronic opioid therapy. I will redose the patient with 4 mg of morphine and also give her another dose of Zofran then she will be discharged to follow-up with her primary care physician and her GI specialist on Saturday for further management of her abdominal pain. I did inform patient that her blood sugar was over 300 on her blood draw and that she will need to have that addressed by her primary care physician. I did offer to write a prescription for Zofran for the patient to help with her nausea and she states she has that Insta Phenergan suppositories at home that she will use. Patient is agreeable to discharge home and to follow-up with her primary care physician on Saturday. Jere Disclaimer: Jere Disclaimer: This electronic medical record was generated, in whole or in part, using a voice recognition dictation system. Departure Departure Impression: Primary Impression: Abdominal pain Qualified Codes: R10.32 - Left lower quadrant pain Disposition: HOME / SELF CARE / HOMELESS Condition: STABLE Referrals: UNKNOWN PCP NAME (PCP) Patient Instructions: Abdominal Pain, Clear Liquid Diet Additional Instructions: Take your home pain medications as prescribed Continue all your other home medications as prescribed Take Zofran and or your Phenergan suppository as needed for nausea and vomiting Clear liquid diet for the next 12 to 24 hours, and then advance as tolerated Follow-up with your primary care physician on Saturday as we discussed for further management of your abdominal pain. CONSTANTIN ESCAMILLA APRN May 12, 2021 21:05
[2021-05-12] MEDS ORDERED: MORPHINE SULFATE 4 MG/ML INJ. IVP ONE (21:30)
[2021-05-12 22:00] VITALS: BP 133/96
== END 2021-05-12 22:09 | disposition home or self-care (01) ==
LOC: ER 17:25
DX: R10.32 Left lower quadrant pain (principal); E11.9 Type 2 diabetes mellitus without complications; E78.00 Pure hypercholesterolemia, unspecified; G43.909 Migraine, unspecified, not intractable, without status migrainosus; Z90.89 Acquired absence of other organs; Z90.49 Acquired absence of other specified parts of digestive tract; Z90.710 Acquired absence of both cervix and uterus; Z87.442 Personal history of urinary calculi; Z88.1 Allergy status to other antibiotic agents; Z88.6 Allergy status to analgesic agent; Z88.8 Allergy status to other drugs, medicaments and biological substances
CPT/HCPCS: 36415; 74177; 80053; 81001; 83690; 85007; 85025; 96361; 96374; 96375; 96376; 99285; J2270; J2405; J3010; J7030; Q9967